=== PATIENT | male | born 2000 | race Caucasian/White ===

== ENCOUNTER 2018-05-28 16:18 | Inpatient (IN) | payer SELFPAY ==
[~2018-05-28 16:18] MED LIST: ISOVUE-370 76%-LOCM 1 ML ONE
[2018-05-28] MEDS ORDERED: Tranexamic Acid 1,000 MG/10 ML VIAL ONE (16:22)
[2018-05-28 16:40] LABS: Hemoglobin 12.7 g/dL (14.0-18.0); Mean Corpuscular HGB CONC 33.2 g/dL (32.0-36.0); Mean Corpuscular Hemoglobin 29.4 pg (25.0-35.0); Mean Corpuscular Volume 88.5 fL (78.0-98.0); Mean Platelet Volume 7.4 fL (7.4-10.4); Platelet Count 240 thou/uL (130-400); RBC Distribution Width 12.5 % (11.5-14.5); Red Blood Cell (RBC) Count 4.31 mill/uL (4.00-5.20); White Blood Cell (WBC) Count 24.1 thou/uL (4.8-10.8)
[2018-05-28 16:44] LABS: PTT 74.6 SEC (22.9-36.1)
[2018-05-28 16:44] LABS: Actual Bicarbonate (HCO3a) 20.2 mEq/L (22-28); Analyzer IN Cardio ER; Base Excess (BEa) -5.3 mEq/L (-2.0 to +3.0); CO2 Tension 39.2 mmHg (35.0-45.0); Calcium, Ionized 1.13 mmol/L (1.12-1.30); Hemoglobin (Hb) 14.4 g/dL (11.4-15.4); O2 Tension (PaO2) 198.3 mmHg (80.0-100.0); Potassium - ABG Lab 4.05 mmol/L (3.70-5.30); pH, Arterial 7.33 (7.35-7.45)
[2018-05-28 16:47] LABS: Puncture Site RRA
[2018-05-28 16:50] LABS: ALT (SGPT) 43 U/L (8-55); AST (SGOT) 55 U/L (5-34); Albumin 3.9 g/dL (3.5-5.0); Alkaline Phosphatase 67 U/L (Less than 750); Anion Gap 15 mmol/L (10-20); BUN (Urea Nitrogen) 13 mg/dL (8.9-20.6); Bilirubin, Total 0.5 mg/dL (0.2-1.2); Calc. Creatinine Clearance 0 mL/min (70-130); Calcium 8.3 mg/dL (7.8-10.44); Carbon Dioxide 25 mmol/L (22-29); Chloride 104 mmol/L (98-107); Estimated GFR-MDRD Greater than 90; Globulin 2.3 g/dL (2.4-3.5); Glucose 223 mg/dL (70-105); Potassium 3.7 mmol/L (3.5-5.1); Protein, Total 6.2 g/dL (6.0-8.3); Sodium 140 mmol/L (136-145)
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
[2018-05-28 16:52] LABS: Band 17 % (5-11); Lymphocytes 5 % (28-48); MDiff Complete? YES; Monocytes 3 % (0-4); Neutrophil 75 % (31-61); Platelet Morphology Comment Appears Adequate
[2018-05-28] MEDS ORDERED: Norepinephrine 8 MG/0.9% NS 250 ML ONE (16:55)
[2018-05-28 17:04] LABS: Bilirubin Negative (Negative); Blood, Urine Large (Negative); Clarity CLOUDY (Clear); Glucose, Urine (Dipstick) Negative (Negative); Leukocyte Negative (Negative); Nitrite Negative (Negative); Protein, Urine (Dipstick) 30 mg/dL (Neg-Trace); Specific Gravity, Urine 1.008 (1.002-1.036); Urobilinogen 0.2 mg/dL (0.2-1.0)
[2018-05-28 17:07] LABS: Hyaline Casts/LPF 4-6 HYALINE CAST LPF (0-3 Hyaline); Pathc Cast-AUWi Flag 0.54 (0-2.49); Squamous Epithelial None Seen HPF (0-3); WBC/HPF 0-3 HPF (0-3)
[2018-05-28] MEDS ORDERED: Dextrose 5% in Water 1,000 ML IV PRN (17:14)
[2018-05-28] MEDS ORDERED: hydrALAZINE 20 MG/ML VIAL SLOW IVP PRN (17:14)
[2018-05-28] MEDS ORDERED: Dextrose 50% Abboject 50 ML SYRINGE SLOW IVP PRN (17:14)
[2018-05-28 17:20] LABS: Bacteria/HPF Rare-Few HPF (None Seen)
[2018-05-28] MEDS ORDERED: Adacel (T-DAP) 0.5 ML SYRINGE ONE ×3 (17:20→17:29)
[2018-05-28 17:21] LABS: Sperm/HPF Rare HPF (None Seen)
[2018-05-28] MEDS ORDERED: Ventilator Sedation Protocol 1 EACH FS ONE (17:24)
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
[2018-05-28 17:39] LABS: Hemoglobin 12.8 g/dL (14.0-18.0)
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
[2018-05-28] MEDS ORDERED: manNITOL 20% 500 ML ONE (18:25)
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
[2018-05-28] MEDS: Sodium Chloride 0.9% 1,000 ML IV SCH ×4 (20:40→23:50)
[2018-05-28] MEDS ORDERED: Mannitol 12.5 GM/50 ML SLOW IVP SCH (21:00)
[2018-05-28] MEDS: Famotidine/PF 20 mg/2ml Vial SLOW IVP SCH (21:40)
[2018-05-28] MEDS ORDERED: Norepinephrine 8 MG/250 ML BAG IVPB PRN (22:18)
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
[2018-05-28 22:49] LABS: Hemoglobin 14.3 g/dL (14.0-18.0)
[2018-05-28] MEDS ORDERED: Norepinephrine 8 MG/0.9% NS 250 ML IVPB SCH (23:00)
--- NOTE | 2018-05-28 23:20 | OP ---
DATE OF PROCEDURE: 05/28/2018 This is Luda Contreras PA-C dictating a report for Rolando Chaidez MD. PROCEDURE: Right ICP monitor placement. PREOPERATIVE DIAGNOSES: Acute head injury with diffuse traumatic subarachnoid hemorrhage, basilar skull fracture, occipital skull fracture, and diffuse cerebral edema. DESCRIPTION OF PROCEDURE: Hair was shaved over the right frontal region. Area was prepped with chlorhexidine and draped in sterile fashion. A 1 cm incision was made over Jake's point. A twist drill was used over the incision through the skull. The dura was perforated with an 18-gauge spinal needle. A Lucila ICP monitor was then connected and zeroed. It was then passed through the dura easily and secured in place. Initial opening pressure was 72. The patient was treated with 100 g of mannitol. The patient tolerated the procedure well. Job ID: [id number]
[2018-05-28] MEDS ORDERED: METHYLPREDNISOLONE SOD SUCC IVPB SCH (23:30)
[2018-05-28] MEDS ORDERED: SODIUM CHLORIDE 0.9% IVPB SCH (23:30)
[2018-05-28] MEDS ORDERED: Insulin Regular 300 UNITS/3 ML VIAL IVP SCH (23:30)
[2018-05-28] MEDS ORDERED: Dextrose 50% Abboject 50 ML SYRINGE SLOW IVP SCH (23:30)
[2018-05-28] MEDS ORDERED: Levothyroxine 100 MCG SDV SLOW IVP SCH (23:45)
[2018-05-28 23:56] LABS: Anion Gap 10 mmol/L (10-20); BUN (Urea Nitrogen) 19 mg/dL (8.9-20.6); Calc. Creatinine Clearance 114 mL/min (70-130); Calcium 7.6 mg/dL (7.8-10.44); Carbon Dioxide 28 mmol/L (22-29); Chloride 107 mmol/L (98-107); Estimated GFR-MDRD Greater than 90; Glucose 106 mg/dL (70-105); Potassium 4.5 mmol/L (3.5-5.1); Sodium 140 mmol/L (136-145)
[2018-05-28] MEDS: Levothyroxine Sodium 400 MCG in Sodium Chloride 0.9% 100 ML IVPB SCH (23:58)
[2018-05-29] MEDS: Sodium Chloride 0.9% 1,000 ML IV SCH ×3 (00:15→09:10)
[2018-05-29] MEDS ORDERED: Calcium Gluconate 9.2 MEQ in Sodium Chloride 0.9% 100 ML IVPB SCH (00:17)
[2018-05-29 00:30] LABS: Phosphorus 3.4 mg/dL (2.3-4.7)
[2018-05-29 00:33] LABS: Actual Bicarbonate (HCO3a) 22.1 mEq/L (22-28); Base Excess (BEa) -5.6 mEq/L (-2.0 to +3.0); CO2 Tension 53.9 mmHg (35.0-45.0); Calcium, Ionized 0.98 mmol/L (1.12-1.30); Carboxyhemoglobin (COHb) 0.3 gm% (0.0-3.0); O2 Tension (PaO2) 103.5 mmHg (80.0-100.0); Potassium - ABG Lab 3.36 mmol/L (3.70-5.30)
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
[2018-05-29] MEDS ORDERED: Vasopressin 40 UNIT, Admixture Fee 1 EACH in Sodium Chloride 0.9% 100 ML IV SCH (00:45)
[2018-05-29] MEDS ORDERED: Mannitol 12.5 GM/50 ML SLOW IVP SCH (02:00)
[2018-05-29] MEDS: Levothyroxine Sodium 400 MCG in Sodium Chloride 0.9% 100 ML IVPB SCH ×3 (04:38→14:32)
[2018-05-29 06:14] LABS: INR-International Normal Ratio 1.7; PTT 35.9 SEC (22.9-36.1); Prothrombin Time 19.6 SEC (12.0-14.7)
[2018-05-29 06:35] LABS: ALT (SGPT) 29 U/L (8-55); AST (SGOT) 40 U/L (5-34); Albumin 3.6 g/dL (3.5-5.0); Alkaline Phosphatase 33 U/L (Less than 750); Anion Gap 8 mmol/L (10-20); BUN (Urea Nitrogen) 18 mg/dL (8.9-20.6); Bilirubin, Total 2.5 mg/dL (0.2-1.2); Calc. Creatinine Clearance 96 mL/min (70-130); Carbon Dioxide 23 mmol/L (22-29); Chloride 118 mmol/L (98-107); Estimated GFR-MDRD 77; Globulin 1.3 g/dL (2.4-3.5); Glucose 146 mg/dL (70-105); Magnesium 1.3 mg/dL (1.7-2.2); Phosphorus Less than 1.0 mg/dL (2.3-4.7); Potassium 3.2 mmol/L (3.5-5.1); Protein, Total 4.9 g/dL (6.0-8.3); Sodium 146 mmol/L (136-145)
[2018-05-29 06:47] LABS: Band 36 % (5-11); Hemoglobin 10.1 g/dL (14.0-18.0); Lymphocytes 2 % (28-48); MDiff Complete? YES; Mean Corpuscular Hemoglobin 29.9 pg (25.0-35.0); Mean Corpuscular Volume 88.1 fL (78.0-98.0); Mean Platelet Volume 7.4 fL (7.4-10.4); Metamyelocyte 1 % (0-0); Monocytes 6 % (0-4); Neutrophil 55 % (31-61); Platelet Count 151 thou/uL (130-400); RBC Distribution Width 12.9 % (11.5-14.5); Red Blood Cell (RBC) Count 3.38 mill/uL (4.00-5.20); White Blood Cell (WBC) Count 11.2 thou/uL (4.8-10.8)
[2018-05-29 07:04] LABS: Actual Bicarbonate (HCO3a) 21.7 mEq/L (22-28); Base Excess (BEa) -3.3 mEq/L (-2.0 to +3.0); CO2 Tension 38.7 mmHg (35.0-45.0); Calcium, Ionized 1.14 mmol/L (1.12-1.30); Carboxyhemoglobin (COHb) 0.2 gm% (0.0-3.0); Hemoglobin (Hb) 10.6 g/dL (11.4-15.4); O2 Tension (PaO2) 369.4 mmHg (80.0-100.0); Potassium - ABG Lab 3.26 mmol/L (3.70-5.30); pH, Arterial 7.37 (7.35-7.45)
[2018-05-29 07:05] LABS: Puncture Site ALINE
[2018-05-29 07:06] LABS: ALV-art Gradient 223.925 (0-20)
[2018-05-29 08:12] VITALS: TEMP 98.8
--- NOTE | 2018-05-29 08:22 | RAD ---
PORTABLE SEMIUPRIGHT FRONTAL CHEST RADIOGRAPH: Date: 05/29/18 COMPARISON: 05/28/18. HISTORY: Intubated patient. FINDINGS: Endotracheal tube, nasogastric tube, and right-sided vascular catheter in proper position. There is h azy nonspecific bilateral perihilar air space disease, right greater than left. When compared to the 05/28/18 examination, aeration within the right upper lobe has significantly improved. IMPRESSION: Perihilar air space disease. Lines and tubes as detailed above. POS: [facility]
[2018-05-29] MEDS ORDERED: MAGNESIUM SULFATE IVPB SCH (08:30)
[2018-05-29] MEDS ORDERED: [UNRECOGNIZED DRUG - OTHER] IVPB SCH (08:30)
[2018-05-29] MEDS ORDERED: POTASSIUM PHOSPHATE IVPB SCH (08:30)
[2018-05-29] MEDS: Famotidine/PF 20 mg/2ml Vial SLOW IVP SCH (09:13)
[2018-05-29 10:13] VITALS: BMI 21.3
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
[2018-05-29 13:02] VITALS: BP 128/96
[2018-05-29 13:02] LABS: INR-International Normal Ratio 1.6; PTT 35.3 SEC (22.9-36.1); Prothrombin Time 18.7 SEC (12.0-14.7)
[2018-05-29 13:11] LABS: Band 48 % (5-11); Hemoglobin 10.6 g/dL (14.0-18.0); Lymphocytes 4 % (28-48); MDiff Complete? YES; Mean Corpuscular HGB CONC 33.7 g/dL (32.0-36.0); Mean Corpuscular Hemoglobin 29.7 pg (25.0-35.0); Mean Corpuscular Volume 88.2 fL (78.0-98.0); Mean Platelet Volume 8.2 fL (7.4-10.4); Monocytes 3 % (0-4); Neutrophil 45 % (31-61); Platelet Count 145 thou/uL (130-400); Platelet Morphology Comment Appears Adequate; RBC Distribution Width 13.2 % (11.5-14.5); Red Blood Cell (RBC) Count 3.56 mill/uL (4.00-5.20); White Blood Cell (WBC) Count 20.4 thou/uL (4.8-10.8)
[2018-05-29 13:15] LABS: ALT (SGPT) 38 U/L (8-55); AST (SGOT) 41 U/L (5-34); Alkaline Phosphatase 38 U/L (Less than 750); Anion Gap 15 mmol/L (10-20); BUN (Urea Nitrogen) 14 mg/dL (8.9-20.6); Bilirubin, Total 1.8 mg/dL (0.2-1.2); Calc. Creatinine Clearance 115 mL/min (70-130); Calcium 8.3 mg/dL (7.8-10.44); Carbon Dioxide 21 mmol/L (22-29); Chloride 111 mmol/L (98-107); Estimated GFR-MDRD Greater than 90; Globulin 1.8 g/dL (2.4-3.5); Glucose 205 mg/dL (70-105); Magnesium 2.7 mg/dL (1.7-2.2); Potassium 5.4 mmol/L (3.5-5.1); Protein, Total 5.8 g/dL (6.0-8.3); Sodium 142 mmol/L (136-145)
[2018-05-29 13:23] LABS: Actual Bicarbonate (HCO3a) 19.7 mEq/L (22-28); CO2 Tension 31.3 mmHg (35.0-45.0); Calcium, Ionized 1.11 mmol/L (1.12-1.30); Carboxyhemoglobin (COHb) 0.7 gm% (0.0-3.0); Hemoglobin (Hb) 10.9 g/dL (11.4-15.4); O2 Tension (PaO2) 393.3 mmHg (80.0-100.0); Potassium - ABG Lab 5.57 mmol/L (3.70-5.30); Puncture Site ALINE; pH, Arterial 7.42 (7.35-7.45)
[2018-05-29 13:24] LABS: ALV-art Gradient 280.575 (0-20)
[2018-05-29 14:00] LABS: Actual Bicarbonate (HCO3a) 24.1 mEq/L (22-28); Base Excess (BEa) -3.9 mEq/L (-2.0 to +3.0); CO2 Tension 58.4 mmHg (35.0-45.0); Calcium, Ionized 1.18 mmol/L (1.12-1.30); Carboxyhemoglobin (COHb) 0.2 gm% (0.0-3.0); Hemoglobin (Hb) 11.2 g/dL (11.4-15.4)
[2018-05-29 14:02] LABS: Puncture Site ALINE; pH, Arterial 7.23 (7.35-7.45)
[2018-05-29 14:06] LABS: Base Excess (BEa) -4.2 mEq/L (-2.0 to +3.0); Calcium, Ionized 1.21 mmol/L (1.12-1.30); Carboxyhemoglobin (COHb) 0.5 gm% (0.0-3.0); Hemoglobin (Hb) 11.4 g/dL (11.4-15.4); O2 Tension (PaO2) 430.9 mmHg (80.0-100.0); Potassium - ABG Lab 5.36 mmol/L (3.70-5.30)
[2018-05-29 14:10] LABS: CO2 Tension 77.9 mmHg (35.0-45.0); Puncture Site ALINE; pH, Arterial 7.14 (7.35-7.45)
[2018-05-29 22:25] LABS: Puncture Site ALINE; pH, Arterial 7.23 (7.35-7.45)
--- NOTE | 2018-05-30 08:16 | DIS ---
DATE OF ADMISSION: 05/28/2018 DATE OF DISCHARGE: 05/29/2018 The patient had not received any sedation or paralytics throughout the day. He had no witnessed neurologic function. His current vital signs are 140/84 by an arterial line, pulse of 102, O2 saturation 100% with a temperature of 99.1 by Medina. His baseline arterial blood gases 7.4, pCO2 of 31, and pO2 of 394. His exam reveals a 6 mm and nonreactive pupils. Negative corneals. Negative gag. Negative cough. No efforts to over breathe the ventilator. Negative cold calorics. Negative doll's eyes. He had no motor response in any of 4 extremities. I initiated an apnea test at 1:53 p.m. I witnessed no spontaneous respirations throughout the test. At 1:58 p.m., the blood gas showed 7.2, pCO2 of 58, and pO2 of 413. We repeated the blood gas at 2:03 with a pH of 7.1, pCO2 of 77.9, and pO2 of 431. He was then reconnected to the ventilator without complication. He remained stable throughout the test. The patient had a negative cerebral perfusion scan that I reviewed and I agree. The patient's time of was 2:07 p.m. on May 29. I will update the family. Job ID: [id number]
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
--- NOTE | 2018-06-02 12:47 | PQF ---
Franco Malik JONATHAN A MD [id number] CLINICAL DOCUMENTATION CLARIFICATION FORM: POST DISCHARGE Addendum to original discharge summary date: ____ Late entry note date: __ DATE: 06/02/18 ATTN: Dr. Chaidez, Please exercise your independent, professional judgment in responding to the clarification form. Clinical indicators are provided on the bottom of this form for your review Please check appropriate box(s): [ x ] Brain [ ] Other diagnosis [ ] Unable to determine In addition, please specify: Present on Admission (POA): [ ] Yes [ ] No [ x ] Unable to determine For continuity of documentation, please document condition throughout progress notes and discharge summary. Thank You. CLINICAL INDICATORS - SIGNS / SYMPTOMS / LABS Non-responsive--05/28 H&P No witnessed neurological function--05/29 Discharge Summary Initial opening pressure-72--05/28 OP note " I initiated apnea test at 1:53 APM; no spontaneous respriations throughout the test". 05/29 Discharge summary RISK FACTORS Subarachnoid hemorrhage--05/28 H&P Basilar skull fracture--05/28 H&P "The patient has a non-survival head injury".--05/28 Progress note TREATMENTS: ICP Monitoring Placement--05/28/18 Apnea Test---05/29/18 Repeated neurological exam--05/28 Progress note Thank you, Pat Stone, CCS 12:42 PM (This form is maintained as a part of the permanent medical record) 2014 [employer]. All Rights Reserved Pat [email or web address] [phone] MTDD
== END 2018-05-29 14:07 | disposition expired | DRG 963 ==
LOC: ERS 16:18 → CCU 17:14
PROVIDERS: ADMIT Surgery; ATTEND Surgery
PROC: 5A1935Z Respiratory Ventilation, Less than 24 Consecutive Hours (ICD-10-PCS; principal; 2018-05-28)
PROC: 4A103BD Monitoring of Intracranial Pressure, Percutaneous Approach (ICD-10-PCS; 2018-05-28)
PROC: 3E033XZ Introduction of Vasopressor into Peripheral Vein, Percutaneous Approach (ICD-10-PCS; 2018-05-28)
PROC: 05H533Z Insertion of Infusion Device into Right Subclavian Vein, Percutaneous Approach (ICD-10-PCS; 2018-05-28)
PROC: 30233N1 Transfusion of Nonautologous Red Blood Cells into Peripheral Vein, Percutaneous Approach (ICD-10-PCS; 2018-05-28)
PROC: 30233L1 Transfusion of Nonautologous Fresh Plasma into Peripheral Vein, Percutaneous Approach (ICD-10-PCS; 2018-05-28)
PROC: 03HB33Z Insertion of Infusion Device into Right Radial Artery, Percutaneous Approach (ICD-10-PCS; 2018-05-28)
PROC: 4A133B1 Monitoring of Arterial Pressure, Peripheral, Percutaneous Approach (ICD-10-PCS; 2018-05-28)
PROC: 4A133J1 Monitoring of Arterial Pulse, Peripheral, Percutaneous Approach (ICD-10-PCS; 2018-05-28)
DX: J96.00 Acute respiratory failure, unspecified whether with hypoxia or hypercapnia; S27.321A Contusion of lung, unilateral, initial encounter; V03.19XA Pedestrian with other conveyance injured in collision with car, pick-up truck or van in traffic accident, initial encounter; R57.8 Other shock; S02.19XB Other fracture of base of skull, initial encounter for open fracture; S02.119B Unspecified fracture of occiput, initial encounter for open fracture; Y92.411 Interstate highway as the place of occurrence of the external cause; R40.2112 Coma scale, eyes open, never, at arrival to emergency department; R40.2212 Coma scale, best verbal response, none, at arrival to emergency department; R40.2312 Coma scale, best motor response, none, at arrival to emergency department; Z23 Encounter for immunization; S40.212A Abrasion of left shoulder, initial encounter; S80.212A Abrasion, left knee, initial encounter; S80.211A Abrasion, right knee, initial encounter; S50.312A Abrasion of left elbow, initial encounter; I95.9 Hypotension, unspecified; S30.811A Abrasion of abdominal wall, initial encounter; S30.810A Abrasion of lower back and pelvis, initial encounter
CPT/HCPCS: 36415; 36430; 36556; 36620; 51702; 70450; 71045; 71260; 72125; 72170; 74177; 78610; 80053; 81001; 82805; 83735; 83930; 84100; 85025; 85610; 85730; 86850; 86900; 86901; 90471; 90715; 94002; 94003; 96365; 96366; 96374; 96375; 99292; A9521; C1713; C1769; G0390; J1815; J2150; J2370; J2930; J3475; J7050; J7799; P9016; P9045; P9048; Q9966; S0028

== ENCOUNTER 2018-05-29 14:08 | Day surgery (SDC) | payer OTHER ==
[2018-05-29] MEDS ORDERED: Phenylephrine HCL 40 MG in Sodium Chloride 0.9% 250 ML 250 ML IVPB SCH ×2 (15:15→17:15)
[2018-05-29] MEDS: Sodium Chloride 0.45% 1,000 ML IV SCH (16:00)
[2018-05-29] MEDS ORDERED: Norepinephrine 8 MG/0.9% NS 250 ML IVPB SCH (16:15)
[2018-05-29] MEDS ORDERED: Phenylephrine 10 MG/NS 250 ML 250 ML IVPB SCH (16:15)
[2018-05-29] MEDS ORDERED: Albuterol Sulfate 2.5 mg/3 ml Neb NEB PRN (16:15)
[2018-05-29] MEDS ORDERED: HUMULIN R 100 UNITS in Sodium Chloride 0.9% 100 ML IVPB SCH (16:15)
[2018-05-29] MEDS ORDERED: Vasopressin 40 UNIT, Admixture Fee 1 EACH in Sodium Chloride 0.9% 100 ML IV SCH (16:30)
[2018-05-29] MEDS: Phytonadione 10 MG/ML AMP IVPB SCH ×2 (16:35→20:12)
--- NOTE | 2018-05-29 16:46 | RAD ---
FExam: Chest one view HISTORY:Ventilated patient. Respiratory distress. Comparison: 05/29/2018 at 4:36 AM FINDINGS: Cardiac silhouette: Normal Pulmonary vessels: Normal Costophrenic angles: Clear LUNGS: Persistent bilateral perihilar, right greater than left opacification. Stable endotracheal tube, nasogastric tube and right-sided central venous catheter. Pneumothorax: None Osseous abnormalities: None IMPRESSION: No significant interval change. Persistent bilateral perihilar right greater than left op acities.
[2018-05-29] MEDS: CEFAZOLIN 1 GM in Sodium Chloride 0.9% 100 ML IVPB SCH ×2 (17:45→23:53)
[2018-05-29 18:14] LABS: Bilirubin Negative (Negative); Blood, Urine Trace (Negative); Clarity CLEAR (Clear); Glucose, Urine (Dipstick) 100 mg/dL (Negative); Leukocyte Negative (Negative); Nitrite Negative (Negative); Protein, Urine (Dipstick) Negative (Neg-Trace); Specific Gravity, Urine 1.018 (1.002-1.036); Urobilinogen 0.2 mg/dL (0.2-1.0); pH, Urine 5.5 (5.0-9.0)
[2018-05-29 18:16] LABS: Bacteria/HPF None Seen HPF (None Seen); Hyaline Casts/LPF 0-3 HYALINE CAST LPF (0-3 Hyaline); RBC/HPF 0-3 HPF (0-3); Squamous Epithelial 0-3 HPF (0-3)
[2018-05-29 18:30] LABS: Renal Epithelial None Seen HPF (0-3); Transitional Epithelial NONE SEEN HPF (0-3)
[2018-05-29 18:32] LABS: INR-International Normal Ratio 1.6; PTT 34.2 SEC (22.9-36.1); Prothrombin Time 19.3 SEC (12.0-14.7)
[2018-05-29 18:35] LABS: Lactic Acid 3.5 mmol/L (0.5-2.2)
[2018-05-29 18:44] LABS: ALT (SGPT) 37 U/L (8-55); AST (SGOT) 34 U/L (5-34); Alkaline Phosphatase 42 U/L (Less than 750); Anion Gap 15 mmol/L (10-20); BUN (Urea Nitrogen) 13 mg/dL (8.9-20.6); Calc. Creatinine Clearance 123 mL/min (70-130); Calcium 8.3 mg/dL (7.8-10.44); Carbon Dioxide 21 mmol/L (22-29); Chloride 111 mmol/L (98-107); Estimated GFR-MDRD Greater than 90; Gamma GT (GGT) 27 U/L (12-64); Globulin 1.9 g/dL (2.4-3.5); Glucose 193 mg/dL (70-105); Lipase Less than 4 U/L (8-78); Magnesium 2.4 mg/dL (1.7-2.2); Phosphorus 4.1 mg/dL (2.3-4.7); Protein, Total 5.9 g/dL (6.0-8.3); Sodium 142 mmol/L (136-145); Troponin I 0.166 ng/mL (< 0.028)
[2018-05-29 18:47] LABS: Band 62 % (5-11); Hemoglobin 10.5 g/dL (14.0-18.0); Lymphocytes 4 % (28-48); MDiff Complete? YES; Mean Corpuscular HGB CONC 33.8 g/dL (32.0-36.0); Mean Corpuscular Hemoglobin 30.2 pg (25.0-35.0); Mean Corpuscular Volume 89.2 fL (78.0-98.0); Mean Platelet Volume 8.3 fL (7.4-10.4); Monocytes 1 % (0-4); Neutrophil 32 % (31-61); Platelet Count 169 thou/uL (130-400); RBC Distribution Width 13.3 % (11.5-14.5); Reactive Lymphocytes 1 % (0-10); Red Blood Cell (RBC) Count 3.48 mill/uL (4.00-5.20); White Blood Cell (WBC) Count 18.3 thou/uL (4.8-10.8)
[2018-05-29] MEDS: Levothyroxine Sodium 400 MCG in Sodium Chloride 0.9% 100 ML IVPB SCH ×2 (18:53→23:34)
[2018-05-29 18:55] LABS: CKMB 7.7 ng/mL (0-6.6)
[2018-05-29] MEDS: Albuterol Sulfate 2.5 mg/3 ml Neb NEB SCH ×2 (19:19→23:42)
[2018-05-29] MEDS ORDERED: Albumin 25% 25 GM/100 ML BOT IVPB SCH (20:00)
[2018-05-29 23:43] VITALS: BP 118/62
--- NOTE | 2018-05-30 00:04 | RAD ---
FEXAM: Portable chest PROVIDED CLINICAL HISTORY: Donor COMPARISON: 05/29/2018 4:35 PM FINDINGS: Significant interval change with respect to the prior examination is not apparent. Persistent perihil ar airspace disease, right greater than left. IMPRESSION: As above.
[2018-05-30 00:05] LABS: INR-International Normal Ratio 1.9; PTT 40.5 SEC (22.9-36.1); Prothrombin Time 22.1 SEC (12.0-14.7)
[2018-05-30 00:08] LABS: Bilirubin Negative (Negative); Blood, Urine Large (Negative); Clarity CLEAR (Clear); Glucose, Urine (Dipstick) Negative (Negative); Leukocyte Negative (Negative); Nitrite Negative (Negative); Protein, Urine (Dipstick) 30 mg/dL (Neg-Trace); Specific Gravity, Urine 1.025 (1.002-1.036)
[2018-05-30 00:12] LABS: Bacteria/HPF None Seen HPF (None Seen); Hyaline Casts/LPF 0-3 HYALINE CAST LPF (0-3 Hyaline); Pathc Cast-AUWi Flag 0.27 (0-2.49); Squamous Epithelial 0-3 HPF (0-3)
[2018-05-30 00:18] LABS: Band 31 % (5-11); Hemoglobin 7.6 g/dL (14.0-18.0); Lymphocytes 8 % (28-48); MDiff Complete? YES; Mean Corpuscular HGB CONC 33.1 g/dL (32.0-36.0); Mean Corpuscular Volume 87.6 fL (78.0-98.0); Mean Platelet Volume 7.9 fL (7.4-10.4); Metamyelocyte 1 % (0-0); Monocytes 3 % (0-4); Neutrophil 57 % (31-61); Platelet Count 93 thou/uL (130-400); Platelet Morphology Comment Appears Decreased; RBC Distribution Width 13.2 % (11.5-14.5); Red Blood Cell (RBC) Count 2.61 mill/uL (4.00-5.20); White Blood Cell (WBC) Count 10.9 thou/uL (4.8-10.8)
[2018-05-30 00:22] LABS: Renal Epithelial None Seen HPF (0-3); Transitional Epithelial 0-3 HPF (0-3)
[2018-05-30 01:03] LABS: Phosphorus 3.6 mg/dL (2.3-4.7)
[2018-05-30 01:04] LABS: ALT (SGPT) 25 U/L (8-55); AST (SGOT) 28 U/L (5-34); Albumin 4.6 g/dL (3.5-5.0); Alkaline Phosphatase 29 U/L (Less than 750); Anion Gap 12 mmol/L (10-20); BUN (Urea Nitrogen) 17 mg/dL (8.9-20.6); Bilirubin, Total 0.9 mg/dL (0.2-1.2); Calc. Creatinine Clearance 114 mL/min (70-130); Calcium 8.8 mg/dL (7.8-10.44); Carbon Dioxide 24 mmol/L (22-29); Chloride 110 mmol/L (98-107); Estimated GFR-MDRD Greater than 90; Gamma GT (GGT) 18 U/L (12-64); Globulin 1.5 g/dL (2.4-3.5); Glucose 146 mg/dL (70-105); Lipase Less than 4 U/L (8-78); Magnesium 2.6 mg/dL (1.7-2.2); Potassium 4.2 mmol/L (3.5-5.1); Protein, Total 6.1 g/dL (6.0-8.3); Sodium 142 mmol/L (136-145)
[2018-05-30 01:08] LABS: CKMB 6.2 ng/mL (0-6.6); Troponin I 0.102 ng/mL (< 0.028)
[2018-05-30 01:16] LABS: Actual Bicarbonate (HCO3a) 21.3 mEq/L (22-28); Base Excess (BEa) -2.9 mEq/L (-2.0 to +3.0); CO2 Tension 34.1 mmHg (35.0-45.0); Carboxyhemoglobin (COHb) 1.4 gm% (0.0-3.0); Hemoglobin (Hb) 7.9 g/dL (11.4-15.4); O2 Tension (PaO2) 197.1 mmHg (80.0-100.0); pH, Arterial 7.41 (7.35-7.45)
[2018-05-30 01:17] LABS: Calcium, Ionized 1.14 mmol/L (1.12-1.30); Puncture Site ALINE
[2018-05-30 01:18] LABS: ALV-art Gradient 188.075 (0-20)
[2018-05-30 01:23] LABS: Hemoglobin 7.3 g/dL (14.0-18.0)
[2018-05-30] MEDS: Albuterol Sulfate 2.5 mg/3 ml Neb NEB SCH (02:21)
[2018-05-30] MEDS: Levothyroxine Sodium 400 MCG in Sodium Chloride 0.9% 100 ML IVPB SCH (03:08)
[2018-05-30] MEDS: Sodium Chloride 0.45% 1,000 ML IV SCH (03:32)
[2018-05-30 04:28] LABS: Actual Bicarbonate (HCO3a) 23.2 mEq/L (22-28); Base Excess (BEa) -1.1 mEq/L (-2.0 to +3.0); CO2 Tension 36.3 mmHg (35.0-45.0); Carboxyhemoglobin (COHb) 0.6 gm% (0.0-3.0); Hemoglobin (Hb) 7.9 g/dL (11.4-15.4); O2 Tension (PaO2) 254.3 mmHg (80.0-100.0); Potassium - ABG Lab 3.85 mmol/L (3.70-5.30); pH, Arterial 7.42 (7.35-7.45)
[2018-05-30 04:29] LABS: ALV-art Gradient 128.125 (0-20); Calcium, Ionized 1.14 mmol/L (1.12-1.30); Puncture Site ALINE
[2018-05-30 04:47] LABS: #Lymphocytes 0.8 thou/uL (1.20-3.40); #Monocytes 0.3 thou/uL (0.11-0.59); #Neutrophils 8.4 thou/uL (1.40-6.50); %Eosinophils 0.1 % (0.0-10.0); %Lymphocytes 8.4 % (28.0-48.0); %Monocytes 2.6 % (0.0-4.0); %Neutrophils 88.9 % (31.0-61.0); Hemoglobin 7.6 g/dL (14.0-18.0); Mean Corpuscular HGB CONC 34.7 g/dL (32.0-36.0); Mean Corpuscular Hemoglobin 30.9 pg (25.0-35.0); Mean Corpuscular Volume 88.9 fL (78.0-98.0); Mean Platelet Volume 8.1 fL (7.4-10.4); Platelet Count 83 thou/uL (130-400); RBC Distribution Width 13.1 % (11.5-14.5); Red Blood Cell (RBC) Count 2.46 mill/uL (4.00-5.20); White Blood Cell (WBC) Count 9.5 thou/uL (4.8-10.8)
[2018-05-30 05:10] LABS: Troponin I 0.067 ng/mL (< 0.028)
[2018-05-30 05:34] LABS: ALT (SGPT) 27 U/L (8-55); AST (SGOT) 27 U/L (5-34); Albumin 4.4 g/dL (3.5-5.0); Alkaline Phosphatase 29 U/L (Less than 750); Anion Gap 15 mmol/L (10-20); BUN (Urea Nitrogen) 21 mg/dL (8.9-20.6); Calc. Creatinine Clearance 109 mL/min (70-130); Calcium 8.9 mg/dL (7.8-10.44); Carbon Dioxide 23 mmol/L (22-29); Chloride 108 mmol/L (98-107); Estimated GFR-MDRD Greater than 90; Gamma GT (GGT) 18 U/L (12-64); Globulin 1.5 g/dL (2.4-3.5); Glucose 183 mg/dL (70-105); INR-International Normal Ratio 1.7; Lipase Less than 4 U/L (8-78); Magnesium 2.4 mg/dL (1.7-2.2); Phosphorus 3.3 mg/dL (2.3-4.7); Potassium 3.9 mmol/L (3.5-5.1); Protein, Total 5.9 g/dL (6.0-8.3); Prothrombin Time 20.2 SEC (12.0-14.7); Sodium 142 mmol/L (136-145)
[2018-05-30 05:36] LABS: Lactic Acid 4.3 mmol/L (0.5-2.2)
[2018-05-30] MEDS ORDERED: CEFAZOLIN 1 GM in Sodium Chloride 0.9% 100 ML IVPB SCH (16:00)
--- NOTE | 2018-05-30 21:15 | EKG ---
Test Reason : Blood Pressure : / mmHG Vent. Rate : 117 BPM Atrial Rate : 117 BPM P-R Int : 128 ms QRS Dur : 084 ms QT Int : 320 ms P-R-T Axes : 085 084 032 degrees QTc Int : 446 ms Sinus tachycardia Otherwise normal ECG No previous ECGs available Confirmed by SORAIDA TAVERAS, DR. Joseph ([id number]) on 05/30/2018 9:14:48 PM Referred By: Confirmed By:DR. Jake QUIGLEY MD
== END 2018-05-30 06:25 | disposition short-term general hospital (02) ==
LOC: SDC 14:08 → CCU 15:08 → SDC 05-30 06:25
DX: R06.03 Acute respiratory distress (principal); Z52.9 Donor of unspecified organ or tissue
CPT/HCPCS: 36416; 36430; 71045; 80053; 81001; 82150; 82553; 82805; 82977; 83605; 83690; 83735; 84100; 84484; 85025; 86850; 86900; 86901; 87070; 87077; 87205; 93005; 93010; 94002; 94640; J0690; J1815; J2370; J2597; J3430; J7050; J7611; P9016; P9045; P9047; P9059